=== PATIENT | female | born 1940 ===

== ENCOUNTER 2017-11-08 15:49 | Emergency (ER) | payer MEDICARE, BC ==
--- NOTE | 2017-11-08 16:10 | ER Report ---
History and Physical Time Seen By MD: 16:10 HPI/ROS CHIEF COMPLAINT: Head laceration HISTORY OF PRESENT ILLNESS: 77-year-old female patient presents to emergency room with complaint of laceration back of her head. Patient states [facility] the [facility]. She states that he was very hot there. She states she does not tolerate heat very well. She states that she started to walk up the embankment, she stopped to rest because she is feeling short of breath and hot. She states that while she was there she had a syncopal episode and fell backwards striking her head on the ground. Patient denies any headache. She denies any nausea, vomiting or diarrhea. Patient has not taken any medication for this. They did apply some pressure to the wound which seem to get the bleeding stopped. While in route back to [place] the bleeding did return. Patient denies having a headache at this time. She states she's not taking any medication for this. REVIEW OF SYSTEMS: Respiratory: No cough, no dyspnea. Cardiovascular: No chest pain, no palpitations. Gastrointestinal: No vomiting, no abdominal pain. Musculoskeletal: No back pain. Allergies: Coded Allergies: Penicillins (Verified Allergy, Unknown, 11/08/17) codeine (Verified Allergy, Unknown, 11/08/17) Home Meds Reported Medications [Antibiotic] No Conflict Check, PO QWEEK 11/08/17 Multivitamin With Minerals (MULTIPLE VITAMIN) 1 Each Tablet, 1 EACH PO, TAB 11/08/17 Ranitidine Hcl (ZANTAC) 150 Mg Tablet, 150 MG PO BID, TAB 11/08/17 Simvastatin (SIMVASTATIN) 20 Mg Tablet, 20 MG PO HS, TAB 11/08/17 Past Medical/Surgical History Patient has a past medical history of asthma, wrist fracture, clavicle fracture , mild hearing loss. Patient denies any surgical history. Reviewed Nurses Notes: Yes Constitutional Vital Sign - Last 24 Hours 11/08/17 16:33 Temp 98.8 Pulse 68 Resp 18 B/P (MAP) 156/70 Pulse Ox 94 O2 Delivery Room Air Physical Exam General Appearance: The patient is alert, has no immediate need for airway protection and no current signs of toxicity. Eyes: Pupils equal and round no injection. Extraocular movements intact. Respiratory: Chest is non tender, lungs are clear to auscultation. Cardiac: regular rate and rhythm Gastrointestinal: Abdomen is soft and non tender, no masses, bowel sounds normal. Musculoskeletal: Neck: Neck is supple and non tender. Extremities have full range of motion and are non tender. Skin: No rashes or lesions. Patient does have a laceration to the scalp, initially was unable to visualize, however after the wound was cleaned and was able to see this proximally a 0.5 cm laceration. Does go into the subcutaneous tissue. Neuro: Patient is alert and oriented 4, cranial nerves II through XII grossly intact. DIFFERENTIAL DIAGNOSIS: After history and physical exam differential diagnosis was considered for head injury including but not limited to concussion, skull fracture, intraparenchymal contusion, subarachnoid, subdural and epidural hematoma. Included in the differential is laceration. I was also concerned about syncopal episode. Medical Decision Making ED Course/Re-evaluation ED Course Patient was admitted to an exam room, history and physical were obtained. Differential diagnoses were considered. I examination lungs are clear, heart is regular, patient is alert and oriented 4, cranial nerves II through XII grossly intact. I discussed with patient that I would like to do a CT scan of the head, EKG, lab work including a CBC, CMP and troponin. Initially patient verbalized understanding and agreement with the current plan. However after I left her significant other were talking and they did not feel that the patient is needing to have that much workup. They're concerned about finances as well. They request that the wound just be cleaned and repaired. We did discuss with the patient and her significant other the dangers of not having a complete workup. They state they would continue to monitor throughout the night. The area was anesthetized, cleaned and repaired described below. Discussed with patient to monitor for signs of worsening condition including dizziness, confusion, uncontrolled vomiting, difficulty arousing. They're to return to emergency room if that occurs. They verbalized understanding and agreement with plan. We'll go ahead and discharge him home. Procedure: Laceration repair. Verbal consent was obtained from the patient. The 0.5 cm laceration on the scalp was anesthetized in the usual fashion. The wound was scrubbed, draped. There were no deep structures involved. The wound was repaired with one staple. The wound repair was simple. The procedure was performed by myself. Decision to Disposition Date: Nov 08, 2017 Decision to Disposition Time: 17:32 Depart Departure Latest Vital Signs Vital Signs Date Time Temp Pulse Resp B/P (MAP) Pulse Ox O2 Delivery O2 Flow Rate FiO2 11/08/17 16:33 98.8 68 18 156/70 94 Room Air Impression: Primary Impression: Laceration of scalp Condition: Improved Disposition: HOME OR SELF-CARE Patient Instructions: Laceration (ED) Additional Instructions: Keep wound dry for 48 hours. Follow up with your primary care provider in the next 5-7 days to have staple removed. Monitor for signs of infection; redness, swelling, heat, discharge, increasing pain or red streaking. Take Tylenol or Ibuprofen as needed for pain. Return to the ER with any concerns. Get plenty of rest. Limit activity by pain. Limit TV and computer time. Monitor for confusion, increased irritability, uncontrollable vomiting, worsening headache or difficulty to arouse. Return to the ER if those are to occur. Follow up with your primary care provider in the next week. Problem Qualifiers Primary Impression: Laceration of scalp Encounter type: initial encounter Qualified Codes: S01.01XA - Laceration without foreign body of scalp, initial encounter LUCIA WEAVER Nov 08, 2017 16:10
[2017-11-08] MEDS ORDERED: NS(*) 0.9% 500 ML BAG 500 ML IV ONE (16:45)
[2017-11-08] MEDS ORDERED: ANTIBIOTIC PO (16:49)
[2017-11-08] MEDS ORDERED: MULT-1335 PO (16:49)
[2017-11-08] MEDS ORDERED: SIMV-49 PO (16:49)
[2017-11-08] MEDS ORDERED: RANI-366 PO (16:49)
--- NOTE | 2017-11-08 17:00 | EKG ---
FACILITY: [facility] PATIENT NAME: ROOPA PRADO : [id number] MR: [id number] V: [id number] EXAM DATE: ORDERING PHYSICIAN: LUCIA WEAVER TECHNOLOGIST: Test Reason : Blood Pressure : / mmHG Vent. Rate : 063 BPM Atrial Rate : 063 BPM P-R Int : 188 ms QRS Dur : 076 ms QT Int : 444 ms P-R-T Axes : 061 -09 004 degrees QTc Int : 454 ms Sinus rhythm Left axis Nonspecific T wave findings Low voltage QRS Borderline ECG Confirmed by MONICO ALICIA ([id number]) on 11/09/2017 5:42:38 AM Referred By: Confirmed By:MONICO ALICIA
[2017-11-08 17:48] VITALS: BP 167/88
== END 2017-11-08 17:48 | disposition home or self-care (01) ==
LOC: ER 16:11
DX: S01.01XA Laceration without foreign body of scalp, initial encounter (principal)
CPT/HCPCS: 93005; 99283